=== PATIENT | male | born 1980 | race Caucasian/White ===

== ENCOUNTER 2023-01-30 14:02 | Emergency (ER) | payer OTHER ==
[~2023-01-30] VITALS: Ht 180.3 cm; Wt 113.3 kg
[~2023-01-30 14:02] MED LIST: BACT800T5 PO; PERCOCET PO
[2023-01-30] MEDS ORDERED: NS 1,000 ML IV ONE (14:40)
[2023-01-30 14:46] LABS: HEMATOCRIT 44.4 % (42.0-52.0); HEMOGLOBIN 15.7 g/dl (13.5-17.5); MEAN CORPUSCULAR HEMOGLOBIN 29.6 pg (27.0-33.0); MEAN CORPUSCULAR HGB CONC 35.4 g/dl (32.0-36.5); MEAN CORPUSCULAR VOLUME 83.8 fl (80.0-96.0); PLATELET COUNT, AUTOMATED 227 10^3/uL (150-450); WHITE BLOOD COUNT 7.5 10^3/uL (4.0-10.0)
[2023-01-30 15:19] LABS: ACETAMINOPHEN LEVEL < 2.0 UG/ML (10.0-20.0); SALICYLATE LEVEL < 3.0 MG/DL (<30)
[2023-01-30 15:20] LABS: ALBUMIN 4.2 G/DL (3.2-5.2); ALKALINE PHOSPHATASE 69 U/L (46-116); ALT/SGPT 36 U/L (7.0-40); AST/SGOT 27 U/L (<34); BILIRUBIN,DIRECT 0.1 MG/DL (<0.4); BILIRUBIN,TOTAL 0.4 MG/DL (0.3-1.2); BLOOD UREA NITROGEN 17 MG/DL (9-23); CALCIUM LEVEL 8.4 MG/DL (8.5-10.1); CARBON DIOXIDE LEVEL 22 MMOL/L (20-31); CHLORIDE LEVEL 107 MMOL/L (98-107); CREATININE FOR GFR 0.75 MG/DL (0.70-1.30); GLOMERULAR FILTRATION RATE > 60.0 (>60); GLUCOSE, FASTING 94 MG/DL (60-100); POTASSIUM SERUM 4.1 MMOL/L (3.5-5.1); SODIUM LEVEL 145 MMOL/L (136-145); TOTAL PROTEIN 7.3 G/DL (5.7-8.2)
[2023-01-30 15:22] LABS: THYROID STIMULATING HORMONE 2.381 uIU/ML (0.55-4.78)
[2023-01-30 15:39] LABS: ETHYL ALCOHOL (ETHANOL) 0.322 % (0.000-0.010)
[2023-01-30 17:08] LABS: AMPHETAMINES LEVEL URINE NEGATIVE (NEGATIVE); BARBITURATES URINE NEGATIVE (NEGATIVE); BENZODIAZEPINES URINE NEGATIVE (NEGATIVE)
[2023-01-30 17:09] LABS: CANNABINOIDS URINE NEGATIVE (NEGATIVE); COCAINE METABOLITE URINE NEGATIVE (NEGATIVE); METHADONE URINE NEGATIVE (NEGATIVE); OPIATES URINE NEGATIVE (NEGATIVE); PHENCYCLIDINE URINE NEGATIVE (NEGATIVE)
[2023-01-31] VITALS: TEMP 97.8; O2SAT 98
[2023-01-31 04:00] VITALS: BP 126/74
== END 2023-01-31 05:57 | disposition home or self-care (01) ==
LOC: M ED 14:02
DX: F10.129 Alcohol abuse with intoxication, unspecified (principal)